=== PATIENT | female | born 1985 | race Caucasian/White ===

== ENCOUNTER 2017-04-08 12:15 | Inpatient (IN) | payer OTHER ==
[2017-04-08] MEDS ORDERED: CITRIC ACID/SODIUM CITRATE 30 ML UNIT-DOSE CUP PO ONE (12:20)
[2017-04-08] MEDS ORDERED: ELECTROLYTE-148 SOLN 500 ML IV ONE (12:20)
[2017-04-08] MEDS ORDERED: ELECTROLYTE-148 SOLN 1,000 ML IV SCH (12:50)
[2017-04-08 12:54] VITALS: BMI 39.2
[2017-04-08] MEDS ORDERED: OXYTOCIN 20 UNITS in 0.9% NS 40 UNIT/2,000 ML INFUS.BAG IV ONE (13:11)
[2017-04-08] MEDS ORDERED: morphine SULFATE/Preservative Free 0.5 MG/ML (1cc Syringe) ONE (14:20)
[2017-04-08] MEDS ORDERED: SUCCINYLCHOLINE CHLORIDE 200 MG/10 ML VIAL ONE (14:21)
[2017-04-08] MEDS ORDERED: ePHEDrine SULFATE 50 MG/1 ML AMPULE ONE (14:21)
[2017-04-08] MEDS ORDERED: PROPOFOL 20 ML ONE (14:21)
[2017-04-08] MEDS ORDERED: ONDANSETRON 4 MG/2 ML VIAL IVPUSH PRN (15:19)
[2017-04-08] MEDS ORDERED: morphine SULFATE/Preservative Free 0.5 MG/ML (1cc Syringe) EP ONE (15:19)
--- NOTE | 2017-04-08 15:20 | HP ---
Past Medical History - Primary Care Physician PCP:: Tavo Castro - Admission Chief Complaint: 40 weeks, previous c/s, request of repeat c/s History of Present Illness: 31 f g [id number] 40 weeks, with one previous c/s requesting repeat c/s, rba discussed, cx clp vx -3 mi, fhr cat 1, rba discussed History Source: Patient Limitations to Obtaining History: Language Barrier - Past Medical History ...: 2 ...Para: 1 ...Term: 1 ...LMP: 07/01/16 ... Weeks Gestation by Dates: 40.1 ...EDC by Dates: 04/07/17 ...EDC by Sono: 04/07/17 - Past Surgical History Past Surgical History: Yes: Hx Myomectomy: No Hx Transabdominal Cerclage: No - Smoking History Smoking history: Never smoked - Alcohol/Substance Use Hx Alcohol Use: No - Social History History of Recent Travel: No Home Medications - Allergies Allergies/Adverse Reactions: Allergies Allergy/AdvReac Type Severity Reaction Status Date / Time No Known Allergies Allergy Verified 04/08/17 12:39 - Home Medications Home Medications: Ambulatory Orders Iron 1 tab PO DAILY 04/08/17 Vitamins (Sjr) - 1 tab PO DAILY 04/08/17 Review of Systems - Review of Systems Constitutional: reports: No Symptoms Eyes: reports: No Symptoms HENT: reports: No Symptoms Neck: reports: No Symptoms Cardiovascular: reports: No Symptoms Respiratory: reports: No Symptoms Gastrointestinal: reports: No Symptoms Genitourinary: reports: No Symptoms Breasts: reports: No Symptoms Reported Musculoskeletal: reports: No Symptoms Integumentary: reports: No Symptoms Neurological: reports: No Symptoms Endocrine: reports: No Symptoms Hematology/Lymphatic: reports: No Symptoms Psychiatric: reports: No Symptoms Physical Exam - Maternity Vital Signs: Vital Signs Temperature 98.2 F 04/08/17 12:43 Pulse Rate 100 H 04/08/17 12:43 Respiratory Rate 20 04/08/17 12:43 Blood Pressure 112/72 04/08/17 12:43 O2 Sat by Pulse Oximetry (%) Constitutional: Yes: Well Nourished, No Distress, Calm Eyes: Yes: WNL, Conjunctiva Clear, EOM Intact HENT: Yes: WNL, Atraumatic, Normocephalic Neck: Yes: WNL, Supple, Trachea Midline Cardiovascular: Yes: WNL, Regular Rate and Rhythm Breast(s): Yes: WNL - Abdominal Exam/OB Fundal Height: 40 Number of Fetuses: Single Presentation: Vertex Regularity: Irritability Intensity: Unaware Monitor Mode: External Heart Rate Location: [facility] Category: I Accelerations: Uniform - Vaginal Exam/OB Vaginal Bleediing: No Dilatation (cm): closed Effacement (%): 0 Amniotic Membrane Status: Intact Presentation: Vertex/Position Station: -3 - Physical Exam Musculoskeletal: Yes: WNL Extremities: Yes: WNL Edema: LLE: Trace, RLE: Trace Deep Tendon Reflex Grade: Normal +2 ...Motor Strength: WNL Psychiatric: Yes: WNL Hemorrhage Risk Assessment - Risk Factors Medium Risk Factors: Yes: Prior , uterine surgery,or multiple laparotomies Risk Score: 1 Risk Level: Medium Risk Problem List - Problems (1) Post term over 40 weeks Code(s): O48.0 - POST-TERM (2) Previous section Code(s): Z98.891 - HISTORY OF UTERINE SCAR FROM PREVIOUS SURGERY Assessment/Plan plan c/s rba discussed
[2017-04-08] MEDS ORDERED: IBUPROFEN 800 MG/8 ML IJ IVPB PRN (15:26)
[2017-04-08] MEDS ORDERED: diphenhydrAMINE HCL 25 MG CAPSULE (FP) PO PRN (15:26)
[2017-04-08] MEDS ORDERED: BENZOCAINE 20% 57 GM BOTTLE TP PRN (15:26)
[2017-04-08] MEDS ORDERED: METHYLERGONOVINE MALEATE 0.2 MG/1 ML AMP IM PRN (15:26)
[2017-04-08] MEDS ORDERED: WITCH HAZEL 50% (TUCKS) 40 PAD/JAR PAD TP PRN (15:26)
[2017-04-08] MEDS ORDERED: BENZOCAINE 28 GM HEMORRHOIDAL OINTMENT PR PRN (15:26)
[2017-04-08] MEDS ORDERED: OXYTOCIN 20 UNITS in 0.9% NS 20 UNIT/1,000 ML INFUS.BAG IV SCH (15:30)
[2017-04-08] MEDS ORDERED: DEXTROSE 5%-LACTATED RINGERS 1,000 ML IV SCH (15:30)
[2017-04-08] MEDS ORDERED: CEFAZOLIN 1 GM/D5W 1 GM/50 ML BAG IVPB SCH (18:00)
[2017-04-08] MEDS: CEFAZOLIN 1 GM PUSH 1 GM/10 ML DISP.SYRIN IVPUSH SCH (23:05)
[2017-04-09] MEDS: CEFAZOLIN 1 GM PUSH 1 GM/10 ML DISP.SYRIN IVPUSH SCH (06:07)
--- NOTE | 2017-04-09 08:18 | PN ---
Post Progress Note - Subjective Subjective: no c/o pain . Post Day: 1 Type of Delivery: Repeat C/S Vital Signs: Vital Signs Temperature 98.5 F 04/09/17 05:33 Pulse Rate 78 04/09/17 05:33 Respiratory Rate 18 04/09/17 06:00 Blood Pressure 128/70 04/09/17 05:33 O2 Sat by Pulse Oximetry (%) Breast Exam: Yes: Soft, Other (Bf ). No: Engorged Uterus: Yes: Fundus Firm, Fundus below umbilicus Incision: Yes: Dressing dry and intact. No: Redness, Oozing Abdomen/GI: Yes: Abdomen soft, Tolerating PO (clear fluids ). No: Abdominal Distention (obese abdomen . BS active ), Tender, Passing flatus Lochia: Yes: Rubra Lochia, amount: Moderate Extremities: Yes: Calves non-tender (in situ ) Perineum: Yes: Intact Activity: Other (not OOB yet , zelaya in situ , draining ) Assessment/Plan post op rc/section , day #[address] po care encourage ambulation, deep breathing , po fluids po cbc pending
[2017-04-09 08:44] LABS: BASO % 0.1 % (0-2.0); EOS % 0.1 % (0-4.5); HEMATOCRIT 33.5 % (32.4-45.2); HEMOGLOBIN 10.7 GM/dL (10.7-15.3); LYMPH % 12.7 % (8-40); MCH 23.1 pg (25.7-33.7); MCHC 31.9 g/dl (32.0-36.0); MEAN CELL VOLUME 72.5 fl (80-96); MEAN PLT VOLUME 6.9 fl (7.5-11.1); MONO % 4.5 % (3.8-10.2); NEUT % 82.6 % (42.8-82.8); PLATELET COUNT 202 K/MM3 (134-434); RBC 4.62 M/mm3 (3.60-5.2); RDW 16.2 % (11.6-15.6); WHITE BLOOD COUNT 9.3 K/mm3 (4.0-10.0)
[2017-04-09] MEDS: ENOXAPARIN NA (PORCINE) 40 MG/0.4 ML DISP.SYRIN SQ SCH (09:52)
[2017-04-09] MEDS: FERROUS SO4 325 MG TABLET (FP) PO SCH (09:52)
[2017-04-09] MEDS: PRENATAL VITAMINS W/ FOLIC ACID TABLET (FP) PO SCH (09:52)
[2017-04-09] MEDS: SIMETHICONE 80 MG TAB.CHEW (FP) PO PRN ×3 (09:52→21:39)
--- NOTE | 2017-04-09 10:27 | PN ---
Progress Note (short form) - Note Progress Note: Anesthesiology post-op POD#1 s/p C/S under spinal with Duramorph. Pt. is OOB to chair. She feels well, denies pain or h/a. She is able to move her legs without difficulty. VSS. No apparent anesthesia-related issues.
[2017-04-09] MEDS ORDERED: BISACODYL 10 MG SUPP.RECT RC PRN (15:26)
[2017-04-09] MEDS: oxyCODONE HCL 5 MG TABLET PO PRN ×2 (17:17→21:40)
[2017-04-09] MEDS: IBUPROFEN 600 MG TABLET (FP) PO PRN ×2 (17:17→21:40)
--- NOTE | 2017-04-10 09:02 | PN ---
Post Progress Note - Subjective Subjective: c/o rt shoulder pain incision pain scale 6/10 voiding without difficulty bm not done Post Day: 2 Type of Delivery: Repeat C/S Vital Signs: Vital Signs Temperature 98.4 F 04/09/17 21:00 Pulse Rate 73 04/09/17 21:00 Respiratory Rate 18 04/09/17 21:00 Blood Pressure 104/64 04/09/17 21:00 O2 Sat by Pulse Oximetry (%) Breast Exam: Yes: Soft, Other (BF ). No: Engorged Uterus: Yes: Fundus Firm, Fundus below umbilicus Incision: Yes: Good intact. No: Redness, Oozing Abdomen/GI: Yes: Abdomen soft, Passing flatus, Tolerating PO (diet). No: Abdominal Distention, Tender Lochia: Yes: Rubra Lochia, amount: Moderate Extremities: Yes: Calves non-tender Perineum: Yes: Intact Activity: Ambulating - Labs Labs: CBC WBC 9.3 K/mm3 (4.0-10.0) D 04/09/17 08:00 RBC 4.62 M/mm3 (3.60-5.2) 04/09/17 08:00 Hgb 10.7 GM/dL (10.7-15.3) 04/09/17 08:00 Hct 33.5 % (32.4-45.2) 04/09/17 08:00 MCV 72.5 fl (80-96) L 04/09/17 08:00 MCH 23.1 pg (25.7-33.7) L 04/09/17 08:00 MCHC 31.9 g/dl (32.0-36.0) L 04/09/17 08:00 RDW 16.2 % (11.6-15.6) H 04/09/17 08:00 Plt Count 202 K/MM3 (134-434) 04/09/17 08:00 MPV 6.9 fl (7.5-11.1) L D 04/09/17 08:00 Neutrophils % 82.6 % (42.8-82.8) 04/09/17 08:00 Lymphocytes % 12.7 % (8-40) 04/09/17 08:00 Monocytes % 4.5 % (3.8-10.2) 04/09/17 08:00 Eosinophils % 0.1 % (0-4.5) 04/09/17 08:00 Basophils % 0.1 % (0-2.0) 04/09/17 08:00 Assessment/Plan stable. plan ct po casre suggest shoulder momvemets, rotation etc, not to lie on that side put pt pressure on it encourage ambulation
[2017-04-10] MEDS: ENOXAPARIN NA (PORCINE) 40 MG/0.4 ML DISP.SYRIN SQ SCH (09:34)
[2017-04-10] MEDS: FERROUS SO4 325 MG TABLET (FP) PO SCH (09:34)
[2017-04-10] MEDS: PRENATAL VITAMINS W/ FOLIC ACID TABLET (FP) PO SCH (09:34)
[2017-04-10] MEDS: oxyCODONE HCL 5 MG TABLET PO PRN (09:35)
[2017-04-10] MEDS: IBUPROFEN 600 MG TABLET (FP) PO PRN (09:36)
[2017-04-10] MEDS ORDERED: SENNOSIDES/DOCUSATE COMBO (SENNA PLUS) TABLET (UD) PO PRN (22:00)
[2017-04-11] MEDS: IBUPROFEN 600 MG TABLET (FP) PO PRN (00:19)
[2017-04-11] MEDS: SIMETHICONE 80 MG TAB.CHEW (FP) PO PRN (00:19)
[2017-04-11] MEDS: oxyCODONE HCL 5 MG TABLET PO PRN (00:24)
[2017-04-11 07:32] LABS: BASO % 0.1 % (0-2.0); EOS % 0.3 % (0-4.5); HEMATOCRIT 29.8 % (32.4-45.2); HEMOGLOBIN 9.4 GM/dL (10.7-15.3); LYMPH % 25.6 % (8-40); MCH 23.1 pg (25.7-33.7); MCHC 31.7 g/dl (32.0-36.0); MEAN CELL VOLUME 72.8 fl (80-96); MEAN PLT VOLUME 6.9 fl (7.5-11.1); MONO % 4.9 % (3.8-10.2); NEUT % 69.1 % (42.8-82.8); PLATELET COUNT 241 K/MM3 (134-434); RBC 4.09 M/mm3 (3.60-5.2); RDW 16.3 % (11.6-15.6); WHITE BLOOD COUNT 7.3 K/mm3 (4.0-10.0)
[2017-04-11] MEDS: ENOXAPARIN NA (PORCINE) 40 MG/0.4 ML DISP.SYRIN SQ SCH (10:07)
[2017-04-11] MEDS: FERROUS SO4 325 MG TABLET (FP) PO SCH (10:07)
[2017-04-11] MEDS: PRENATAL VITAMINS W/ FOLIC ACID TABLET (FP) PO SCH (10:08)
--- NOTE | 2017-04-11 11:31 | PN ---
Post Progress Note - Subjective Subjective: no c/o inciision pain, or shoulder pain Post Day: 3 Type of Delivery: Repeat C/S Vital Signs: Vital Signs Temperature 98.5 F 04/10/17 21:00 Pulse Rate 79 04/10/17 21:00 Respiratory Rate 18 04/10/17 21:00 Blood Pressure 114/69 04/10/17 21:00 O2 Sat by Pulse Oximetry (%) Breast Exam: Yes: Soft, Other (BF & bottle feeding ). No: Engorged Uterus: Yes: Fundus Firm, Fundus below umbilicus Incision: Yes: Dressing dry and intact, Good intact. No: Redness, Other Abdomen/GI: Yes: Abdomen soft, Passing flatus, Tolerating PO (diet). No: Abdominal Distention, Tender Lochia: Yes: Rubra Lochia, amount: Moderate Extremities: Yes: Calves non-tender Perineum: Yes: Intact Activity: Ambulating - Labs Labs: CBC WBC 7.3 K/mm3 (4.0-10.0) 04/11/17 07:03 RBC 4.09 M/mm3 (3.60-5.2) 04/11/17 07:03 Hgb 9.4 GM/dL (10.7-15.3) L D 04/11/17 07:03 Hct 29.8 % (32.4-45.2) L 04/11/17 07:03 MCV 72.8 fl (80-96) L 04/11/17 07:03 MCH 23.1 pg (25.7-33.7) L 04/11/17 07:03 MCHC 31.7 g/dl (32.0-36.0) L 04/11/17 07:03 RDW 16.3 % (11.6-15.6) H 04/11/17 07:03 Plt Count 241 K/MM3 (134-434) 04/11/17 07:03 MPV 6.9 fl (7.5-11.1) L 04/11/17 07:03 Neutrophils % 69.1 % (42.8-82.8) 04/11/17 07:03 Lymphocytes % 25.6 % (8-40) D 04/11/17 07:03 Monocytes % 4.9 % (3.8-10.2) 04/11/17 07:03 Eosinophils % 0.3 % (0-4.5) D 04/11/17 07:03 Basophils % 0.1 % (0-2.0) 04/11/17 07:03 Assessment/Plan stable counselled to ct po iron & pnv , Motrin prn for pain she will Rtc on for staple removal. requests for discharge today
[2017-04-11 13:40] VITALS: BP 125/69; PULSE 56; TEMP 99
--- NOTE | 2017-04-11 15:28 | DS ---
Physical Exam-PITCH FLAKER Vital Signs: Vital Signs Temperature 99 F 04/11/17 10:00 Pulse Rate 56 L 04/11/17 10:00 Respiratory Rate 20 04/11/17 10:00 Blood Pressure 125/69 04/11/17 10:00 O2 Sat by Pulse Oximetry (%) Constitutional: Yes: Well Nourished, No Distress, Calm Eyes: Yes: WNL, Conjunctiva Clear, EOM Intact HENT: Yes: WNL, Atraumatic, Normocephalic Neck: Yes: WNL, Supple, Trachea Midline Cardiovascular: Yes: WNL, Regular Rate and Rhythm Respiratory: Yes: WNL, Regular, CTA Bilaterally Gastrointestinal: Yes: WNL ...Rectal Exam: Yes: WNL Renal/: Yes: WNL ....Post : Yes: Uterus firm, Uterus non-tender, Slight lochia rubra Breast(s): Yes: WNL Musculoskeletal: Yes: WNL Extremities: Yes: WNL Integumentary: Yes: WNL Wound/Incision: Yes: Clean/Dry, Well Approximated Neurological: Yes: WNL, Alert, Oriented ...Motor Strength: WNL Psychiatric: Yes: WNL, Alert, Oriented Labs: CBC, BMP 04/11/17 07:03 Delivery - Delivery Section: Repeat (NO COMPLICATION) Type of Anesthesia: Spinal Episiotomy/Laceration: None EBL (cc): 500 Delivery, Single - Stages of Labor Date of Delivery: 04/08/17 Time of Delivery: 14:46 Time Placenta Delivered: 14:47 Placenta: Yes: Expressed - Condition of Infant Highway Construction Inspector/Learning And Development Consultant Present: Yes Name: Dede Arreola Gender: Female Weight: 9 lb 3 oz Position: Left, OT Total Hours ROM (Hrs/Mins): 1min. - 1 Minute Total Score: 9 5 Minutes Total Score: 9 - Feeding Plan Initial Plan: Exclusive throughout hospitalization Discharge Summary Reason For Visit: C SECTION Procedures: Principal: REPEAT lst C/S Hospital Course: UNEVENTFUL Condition: Stable - Instructions Diet, Activity, Other Instructions: Post Instructions DIET: Continue good diet high in protein, calcium, and iron rich foods. Drink at least eight (8) glasses of water daily in addition to other fluids. ___ Regular diet MEDICATIONS: Continue vitamins and iron as previously directed. Motrin and Tylenol may be taken for minor discomfort. ACTIVITY: Mild to moderate exercise may be started in two (2) weeks. Take frequent rest periods. Resume normal activity after six (6) week check up. WOUND CARE OF OPERATIVE SITE: Continue use of perineal bottle until vaginal discharge stops. Keep area clean. Shower daily. Keep abdominal wound dry. Report any drainage or redness to physician. Tub baths, tampons and douches are not permitted for [address] Breast feeding & or Bottle feeding BREAST CARE: (For those that are not breast feeding): If engorgement occurs: Wear tight fitting bra. Take Tylenol or Motrin for pain. Apply cold packs (ice in bags to each breast ) FAMILY PLANNING: There are many control alternatives to pursue and they should be discussed at your first office visit. You may resume sexual activity after your six (6) week check up. (Remember, breast feeding is not a contraceptive) NEXT PHYSICIAN APPOINTMENT: Be certain to call for a one (1) week appointment, unless otherwise directed. rtc for juliano removal Call Clinic or got to Emergency Dept if you have any of the following: Heavy vaginal bleeding Painful urination Leg pain Unusual odor noted to vaginal bleeding High fever Red streaking noted on breast Referrals: Tavo Castro MD [Staff Physician] - Disposition: HOME - Home Medications Comprehensive Discharge Medication List: Ambulatory Orders Iron 1 tab PO DAILY 04/08/17 Vitamins (Sjr) - 1 tab PO DAILY 04/08/17 Ferrous Sulfate [Feosol] 325 mg PO DAILY tab 04/11/17 Ibuprofen [Motrin -] 600 mg PO Q4H PRN #30 tablet 04/11/17 Vitamins (Sjr) - 1 tab PO DAILY tablet 04/11/17
--- NOTE | 2017-04-11 19:49 | OP ---
DATE OF OPERATION: 04/08/2017 PREOPERATIVE DIAGNOSIS: , 40 weeks, previous section, requests a repeat section. POSTOPERATIVE DIAGNOSIS: , 40 weeks, previous section, requests a repeat section. PROCEDURE: Repeat low-segment transverse section. SURGEON: Tavo Castro MD COAL CARRIER: MORGAN Wang ANESTHESIA: Spinal. ANESTHESIOLOGIST: Shima Hamilton MD ESTIMATED BLOOD LOSS: 500 mL DESCRIPTION OF OPERATIVE PROCEDURE: Patient was taken to the operating room. Under adequate spinal anesthesia, abdomen and perineum were prepped and draped. Pfannenstiel abdominal skin incision was made. Abdominal wall was cut layer by layer until peritoneum was exposed and incised. Upon entering the abdominal cavity, lower uterine segment was identified and uterovesical fold of peritoneum established. Bladder was pushed down. A low transverse uterine incision was made. Incision extended laterally. Amniotic sac was entered, clear fluid. Head delivered. Nasopharynx was suctioned, and live baby was delivered without any difficulty. Placenta was delivered manually. Uterine cavity was cleaned out of remaining tissue. Uterine incision was closed in 2 layers, first layer with 0 Biosyn continuous suture, the second layer with 0 Biosyn imbricating the first layer. Bladder flap was closed with 0 Biosyn continuous suture. Both tubes and ovaries were checked, were normal. No active bleeding was seen. All the lap pads, sponge, and instrument counts were correct. Then, peritoneum was closed with 0 Biosyn continuous suture. Muscles were brought together with interrupted sutures of 0 Biosyn. Fascia was closed with 0 Biosyn continuous suture, subcutaneous fat with interrupted suture of 0 Biosyn, and the skin was closed with juliano. The patient tolerated the procedure well, left the OR in good condition. Chencho [id number]
--- NOTE | 2017-04-19 17:25 | PATH ---
Surgical Pathology Report Patient Name: [address] [facility]. Rec. #: [id number] /Age/Gender: 1985 (Age: 31) / F Account: [id number] Location: [facility] OBS/PILLOWCASE CLEANER Taken: 04/08/2017 Received: 04/11/2017 Reported: 04/19/2017 Physicians: Tavo Castro M.D. Specimen(s) Received PLACENTA Clinical History , 40.1 weeks for repeat Final Diagnosis PLACENTA, SECTION: 645 g THIRD TRIMESTER PLACENTA WITH TRIVASCULAR UMBILICAL CORD AND UNREMARKABLE PLACENTAL MEMBRANES. Electronically Signed Odette Oliva M.D. Gross Description The specimen is received fresh labeled placenta and is a 645 gram, 21.5 x 15.5 x 2.3 cm. placenta with attached membranes and umbilical cord. The attached membranes are contreras, translucent with focal opacities and insert marginally. The umbilical cord measures 39 cm. in length and averages 1.1 cm. in diameter. The cord inserts centrally. No true knots or strictures are identified. Cut surface of the umbilical cord reveals 3 vessels. The surface is reno-blue with minimal fibrin deposition and appropriate caliber vessels. The maternal surface is red-brown with focal defects. Sectioning reveals red-brown, spongy parenchyma. No lesions are identified. Fire And Safety Helper sections are submitted in three cassettes as follows: 1- membrane rolls and umbilical cord; 2-3- full thickness sections of placenta. 04/14/201704/14/2017
== END 2017-04-11 14:45 | disposition home or self-care (01) | DRG 540 ==
LOC: JLDR 12:15 → J3W 19:20
PROVIDERS: ADMIT Obstetrics & Gynecology; ATTEND Obstetrics & Gynecology
PROC: 10D00Z1 Extraction of Products of Conception, Low, Open Approach (ICD-10-PCS; principal; 2017-04-11)
DX: O48.0 Post-term pregnancy (principal); O34.211 Maternal care for low transverse scar from previous cesarean delivery; Z3A.40 40 weeks gestation of pregnancy; Z37.0 Single live birth
CPT/HCPCS: 36415; 85025; 88307-TC